=== PATIENT | male | born 2000 ===

== ENCOUNTER 2022-01-10 16:10 | Emergency (ER) | payer OTHER ==
[2022-01-10] MEDS ORDERED: DICLOFENAC SODI75 MG PO (21:25)
== END 2022-01-10 21:30 | disposition home or self-care (01) ==
LOC: FER 16:10
DX: S93.401A Sprain of unspecified ligament of right ankle, initial encounter (principal); F17.210 Nicotine dependence, cigarettes, uncomplicated; Z91.038 Other insect allergy status; X50.1XXA Overexertion from prolonged static or awkward postures, initial encounter
CPT/HCPCS: 73610; J1885